=== PATIENT | female | born 1995 | race Two or more races ===

== ENCOUNTER 2020-06-20 19:14 | Observation (INO) | payer MEDICAID ==
[~2020-06-20] VITALS: Ht 160 cm; Wt 66.8 kg
[2020-06-20 20:30] LABS: Basophils # (auto) 0.1 10 ^3/uL (0-0.2); Basophils % (auto) 0.6 % (0.0-2.0); Eosinophils # (auto) 0.3 10 ^3/uL (0-0.8); Eosinophils % (auto) 1.9 % (0.0-7.0); Hematocrit 45.1 % (36.0-46.0); Lymphocytes # (auto) 2.3 10 ^3/uL (0.4-5.4); Mean Corpuscular Hemoglobin 29.3 pg (28.0-32.0); Mean Corpuscular Hgb Conc. 33.4 g/dL (32.0-36.0); Monocytes # (auto) 0.7 10 ^3/uL (0-1.3); Monocytes % (auto) 5.5 % (0.0-12.0); Neutrophils # (auto) 10.1 10 ^3/uL (1.6-8.6); Nucleated Red Blood Cells % 0.1 %; Platelet Count (auto) 298 10^3/uL (140-450); Red Blood Cells 5.13 10^6/uL (4.0-5.20); Red Cell Distribution Width 12.8 % (11.8-14.3); White Blood Cell 13.5 10^3/uL (4.4-10.8)
[2020-06-20 20:44] LABS: Albumin 4.3 g/dL (3.4-5.0); Anion Gap 5 (5-15); Blood Urea Nitrogen 7 mg/dL (7-18); Calcium 9.5 mg/dL (8.5-10.1); Carbon Dioxide 28 mmol/L (21-32); Chloride 106 mmol/L (98-107); Glucose 80 mg/dL (74-106); Magnesium 2.1 mg/dL (1.6-2.6); Potassium 4.5 mmol/L (3.5-5.1); Sodium 139 mmol/L (136-145)
[2020-06-20 20:47] LABS: Alanine Aminotransferase 19 U/L (13-56); Aspartate Aminotransferase 14 U/L (15-37); BUN/Creatinine Ratio 8.3; GFR African American 108 mL/min; GFR Non-African American 89 mL/min
[2020-06-20 20:52] LABS: Alkaline Phosphatase 89 U/L (45-117); Bilirubin, Total 0.6 mg/dL (0.2-1.0); Total Protein 8.7 g/dL (6.4-8.2)
[2020-06-20 22:02] LABS: Urine Bacteria FEW /hpf (None Seen); Urine Blood Negative /uL (Negative); Urine Specific Gravity 1.012 (1.001-1.035); Urine WBC 14 /hpf (0 - 5)
[2020-06-20 22:20] LABS: Amphetamine Screen, Urine NEGATIVE (NEGATIVE); Barbiturate Scree,Urine NEGATIVE (NEGATIVE); Benzodiazephine Screen, Urine NEGATIVE (NEGATIVE); Cannabinoid Screen, Urine NEGATIVE (NEGATIVE); Cocaine Screen, Urine NEGATIVE (NEGATIVE); Opiate Scree,Urine NEGATIVE (NEGATIVE); Phencyclidine Screen, Urine NEGATIVE (NEGATIVE)
[2020-06-20] MEDS ORDERED: ACETAMINOPHEN 325 MG TAB PO ONE (22:45)
[2020-06-20] MEDS ORDERED: ASPirin 81 mg TAB PO ONE (23:00)
[2020-06-20] MEDS ORDERED: HYDROcodone-ACET 5/325MG TAB PO PRN (23:45)
[2020-06-20] MEDS ORDERED: ONDANSETRON HCL 4 MG/2 ML VIAL IV PRN (23:45)
[2020-06-20] MEDS ORDERED: ACETAMINOPHEN 325 MG TAB PO PRN (23:45)
[2020-06-20] MEDS ORDERED: MORPHINE SULF INJ 2 MG/ML SYRINGE 1ML IV PRN (23:45)
[2020-06-20] MEDS ORDERED: NITROGLYCERIN 0.4 MG SL TAB SL PRN (23:45)
[2020-06-20] MEDS ORDERED: MORPHINE SULFATE 4 MG/ML SYR/VIAL IV PRN (23:45)
[2020-06-20] MEDS ORDERED: DOCUSATE SOD 100 MG CAP PO PRN (23:45)
[2020-06-21] VITALS (7 sets, daily range): BP systolic 108–132; BP diastolic 64–71
[2020-06-21] MEDS ORDERED: NITROGLYCERIN 0.4 MG SL TAB SL PRN (01:00)
[2020-06-21] MEDS ORDERED: MORPHINE SULF INJ 2 MG/ML SYRINGE 1ML IV PRN (01:00)
[2020-06-21] MEDS ORDERED: ACETAMINOPHEN 325 MG TAB PO PRN (01:00)
[2020-06-21] MEDS ORDERED: ONDANSETRON HCL 4 MG/2 ML VIAL IV PRN (01:00)
--- NOTE | 2020-06-21 02:08 | NUR ---
Telemetry admit from [facility] admitted to Telemetry unit after SBAR received. Patient alert and orientedx4 to MARIA DOLORES C[place]AND RN primary RN, 292A and unit policies regarding patient care and visiting hours. Patient is on Room air, ambulatory, unlabored breathing. Patient now on continuous telemetry monitoring, tele box # 84 and telemetry reading on arrival to unit is Sinus Tachy 116. Patient placed on bedside oxygen, weighed by bedscale and encouraged to call if they need something. All questions and concerns addressed, patient verbalized understanding. Note:
--- NOTE | 2020-06-21 05:17 | NUR ---
PATIENT SLEEPING. NO DISTRESS SEEN. WILL CONTINUE TO MONITOR PATIENT.
[2020-06-21 06:33] LABS: Basophils # (auto) 0 10 ^3/uL (0-0.2); Basophils % (auto) 0.3 % (0.0-2.0); Eosinophils # (auto) 0.2 10 ^3/uL (0-0.8); Eosinophils % (auto) 1.8 % (0.0-7.0); Hematocrit 42.1 % (36.0-46.0); Lymphocytes # (auto) 3.4 10 ^3/uL (0.4-5.4); Lymphocytes % (auto) 26.4 % (10.0-50.0); Mean Corpuscular Hgb Conc. 33.2 g/dL (32.0-36.0); Mean Corpuscular Volume 87.5 fL (80.0-100.0); Monocytes # (auto) 0.8 10 ^3/uL (0-1.3); Monocytes % (auto) 5.9 % (0.0-12.0); Neutrophils # (auto) 8.4 10 ^3/uL (1.6-8.6); Neutrophils % (auto) 65.6 % (37.0-80.0); Nucleated Red Blood Cells % 0.2 %; Platelet Count (auto) 266 10^3/uL (140-450); Red Blood Cells 4.81 10^6/uL (4.0-5.20); Red Cell Distribution Width 12.9 % (11.8-14.3); White Blood Cell 12.8 10^3/uL (4.4-10.8)
[2020-06-21 06:38] LABS: Albumin 3.5 g/dL (3.4-5.0); Anion Gap 6 (5-15); Blood Urea Nitrogen 8 mg/dL (7-18); Calcium 9.1 mg/dL (8.5-10.1); Carbon Dioxide 25 mmol/L (21-32); Chloride 108 mmol/L (98-107); Glucose 86 mg/dL (74-106); Magnesium 2.4 mg/dL (1.6-2.6); Potassium 3.8 mmol/L (3.5-5.1); Sodium 139 mmol/L (136-145)
[2020-06-21 06:43] LABS: Alanine Aminotransferase 15 U/L (13-56); Alkaline Phosphatase 72 U/L (45-117); Aspartate Aminotransferase 10 U/L (15-37); Bilirubin, Total 0.7 mg/dL (0.2-1.0); Cholesterol 150 mg/dL (< 200); GFR African American 127 mL/min; GFR Non-African American 105 mL/min; HDL Cholesterol 94 mg/dL (40-59); LDL Cholesterol 56 mg/dL (< 100); Total Protein 7.1 g/dL (6.4-8.2); Triglycerides 42 mg/dL (< 150)
--- NOTE | 2020-06-21 06:52 | NUR ---
CLOSING SHIFT REPORT PATIENT NO ACUTE DISTRESS SEEN, PATIENT STABLE. BED IN LOW LOCKED POSITION, SIDE RAILS UPX2, NON SKID SOCKS, CALL LIGHT WITHIN REACH.
--- NOTE | 2020-06-21 07:30 | NUR ---
Opening Shift Note Assumed care of patient is alert and oriented x 4. Respirations are even and non labored on room air. No S/S of distress/SOB. Patient reported 7/10 pain to the left side of her chest, non radiating. Bed is in the lowest and locked position with side rails up x 2 and call light within reach. Instructed on POC and to call for assist PRN, will continue to monitor for changes Q1hr and PRN.
[2020-06-21] MEDS ORDERED: cefTRIAXone 1GM/50ML D5W 50 ML IV SCH (09:00)
[2020-06-21] MEDS ORDERED: PANTOPRAZOLE 40 MG/10 ML VIAL INJ IV SCH (10:00)
[2020-06-21] MEDS ORDERED: ASCORBIC ACID 500 MG TAB PO SCH (10:00)
[2020-06-21] MEDS ORDERED: ZINC SULFATE 220mg CAP or TAB PO SCH (10:00)
[2020-06-21] MEDS ORDERED: ASPirin 81 mg TAB PO SCH ×2 (10:00)
[2020-06-21] MEDS ORDERED: MULTIPLE VITAMIN TAB PO SCH (10:00)
--- NOTE | 2020-06-21 10:28 | NUR ---
EKG performed Patient reported 7/10 chest pain. Completed EKG and filed in the chart.
[2020-06-21] MEDS ORDERED: KETOROLAC TROMETH 30 MG/ML 1ML VIAL IV PRN (11:30)
[2020-06-21] MEDS: IBUPROFEN 600 MG TAB PO SCH ×2 (15:35→22:00)
--- NOTE | 2020-06-21 18:12 | NUR ---
Paged Dr. Becerra Per Dr. Ace, patient is able to go home. Paged to request discharge order.
--- NOTE | 2020-06-21 18:15 | NUR ---
Call returned from Dr. Becerra New orders received.
[2020-06-21] MEDS ORDERED: ATORVASTATIN 20 MG TAB PO SCH (22:00)
--- NOTE | 2020-06-21 23:15 | NUR ---
PATIENT DISCHARGE HOME. PATIENT ALERT AND ORIENTEDX4. PATIENT WAS TAKEN TO LOBBY VIA WHEELCHAIR BY MARIANNE MEDEL. NO ISSUES UPON DISCHARGE. PATIENT HAS ALL DELONGINGS. iv WAS TAKEN OFF AND TELE MONITOR WAS TAKEN OFF.
[2020-06-25] MEDS ORDERED: IBUP600T27 PO (09:28)
[2020-06-25] MEDS ORDERED: CIPR500T4 PO (09:28)
== END 2020-06-21 23:05 | disposition home or self-care (01) ==
LOC: ER 19:19 → INTOOBSV 19:20 → TELE-WESTW 19:20
PROVIDERS: ADMIT Nurse Practitioner Family; ATTEND Hospitalist
DX: R07.89 Other chest pain (principal); N39.0 Urinary tract infection, site not specified
CPT/HCPCS: 36415; 71045; 80053; 80061; 80307; 81001; 83735; 84439; 84443; 84484; 84702; 85025; 85379; 87086; 93005; 93306; 96365; 96375; 99285; G0378; J0696; J2270; J7030

== ENCOUNTER → 2023-03-11 | Outpatient (CLI) | payer MEDICAID ==
[~2023-03-11] MED LIST: CIPR500T4 PO; IBUP-1454 PO
[2023-03-11 13:47] LABS: Basophils # (auto) 0.1 10 ^3/uL (0-0.2); Basophils % (auto) 0.4 % (0.0-2.0); Eosinophils # (auto) 0.1 10 ^3/uL (0-0.8); Eosinophils % (auto) 0.9 % (0.0-7.0); Hematocrit 40.1 % (36.0-46.0); Hemoglobin 13.3 g/dL (12.2-16.2); Lymphocytes % (auto) 15.7 % (10.0-50.0); Mean Corpuscular Hgb Conc. 33.2 g/dL (32.0-36.0); Mean Corpuscular Volume 84.3 fL (80.0-100.0); Monocytes # (auto) 0.6 10 ^3/uL (0-1.3); Monocytes % (auto) 4.4 % (0.0-12.0); Neutrophils % (auto) 78.6 % (37.0-80.0); Red Blood Cells 4.76 10^6/uL (4.0-5.20); Red Cell Distribution Width 14.6 % (11.8-14.3); White Blood Cell 12.7 10^3/uL (4.4-10.8)
[2023-03-11 13:53] LABS: Urine Bacteria MANY /hpf (None Seen); Urine Blood Negative /uL (Negative); Urine Mucus FEW (None Seen); Urine WBC 17 /hpf (0 - 5)
[2023-03-11 14:27] LABS: Alcohol, Urine < 3.0 mg/dL (0-10); Amphetamine Screen, Urine NEGATIVE (NEGATIVE); Barbiturate Scree,Urine NEGATIVE (NEGATIVE); Benzodiazephine Screen, Urine NEGATIVE (NEGATIVE); Cannabinoid Screen, Urine NEGATIVE (NEGATIVE); Cocaine Screen, Urine NEGATIVE (NEGATIVE); Opiate Scree,Urine NEGATIVE (NEGATIVE); Phencyclidine Screen, Urine NEGATIVE (NEGATIVE)
[2023-03-12 08:07] LABS: RPR Non Reactive (Non Reactive)
== END | disposition home or self-care (01) ==
LOC: LAB 13:11
PROVIDERS: ATTEND Obstetrics & Gynecology
DX: Z34.80 Encounter for supervision of other normal pregnancy, unspecified trimester (principal); Z36.0 Encounter for antenatal screening for chromosomal anomalies; Z31.430 Encounter of female for testing for genetic disease carrier status for procreative management; N39.0 Urinary tract infection, site not specified
CPT/HCPCS: 36415; 80307; 81001; 82306; 83036; 84112; 84144; 84702; 85025; 86592; 86703; 86762; 86850; 86900; 86901; 87086; 87340